=== PATIENT | male | born 1995 | race Hispanic/Latino ===

== ENCOUNTER 2016-08-31 11:20 | Emergency (ER) | payer BC ==
[2016-08-31 11:26] VITALS: BP 114/59; PULSE 79; RESP 20; TEMP 98.6; O2SAT 98
--- NOTE | 2016-08-31 11:53 | ED PDOC ---
Lower Extremity Pain/Injury Time Seen by Provider: 08/31/16 11:51 Chief Complaint (Nursing): Lower Extremity Problem/Injury Chief Complaint (Provider): right knee injury History Per: Patient (21 y/o male here for evaluation of right knee injury that occurred last night during rugby game. Patient notes twisting of knee when planted on floor. Notes moderate pain with ambulation. Denies any prior injury to knee.) Past Medical History Reviewed: Historical Data, Nursing Documentation, Vital Signs Vital Signs: Last Vital Signs Temp 98.6 F 08/31/16 11:31 Pulse 79 08/31/16 11:31 Resp 20 08/31/16 11:31 BP 114/59 L 08/31/16 11:31 Pulse Ox 98 08/31/16 11:31 - Family History Family History: States: No Known Family Hx - Home Medications Home Medications: Ambulatory Orders Medication Instructions Recorded Naproxen [Naprosyn Tab] 375 mg PO Q8 PRN #21 tab 08/31/16 - Allergies Allergies/Adverse Reactions: Allergies Allergy/AdvReac Type Severity Reaction Status Date / Time No Known Allergies Allergy Verified 08/31/16 11:31 Review of Systems ROS Statement: Except As Marked, All Systems Reviewed And Found Negative Musculoskeletal: Positive for: Other (knee pain) Physical Exam - Reviewed Nursing Documentation Reviewed: Yes Vital Signs Reviewed: Yes - Physical Exam Appears: Positive for: Well, Non-toxic, No Acute Distress Head Exam: Positive for: ATRAUMATIC, NORMAL INSPECTION, NORMOCEPHALIC Skin: Positive for: Normal Color, Warm, DRY Eye Exam: Positive for: EOMI, Normal appearance, PERRL ENT: Positive for: Normal ENT Inspection Neck: Positive for: Normal, Painless ROM Cardiovascular/Chest: Positive for: Regular Rate, Rhythm Respiratory: Positive for: CNT, Normal Breath Sounds Gastrointestinal/Abdominal: Positive for: Normal Exam, Bowel Sounds, Soft Back: Positive for: Normal Inspection Extremity: Positive for: Normal ROM, Tenderness (tender medial aspect of right knee. Minimal effusion noted. Able to flex and extend without difficulty.) Neurologic/Psych: Positive for: Alert, Oriented - ECG O2 Sat by Pulse Oximetry: 98 - Progress ED Course And Treament: knee xry: neg for fx placed in knee immobilizer and crutches Disposition - Clinical Impression Clinical Impression: Knee injury - Patient ED Disposition Is Patient to be Admitted: No - Disposition Referrals: Henrique Newberry MD [Staff Provider] - Disposition: Routine/Home Disposition Time: 12:07 Condition: FAIR Prescriptions: Naproxen [Naprosyn Tab] 375 mg PO Q8 PRN #21 tab PRN Reason: Pain, Moderate (4-7) Instructions: Knee Sprain (ED)
--- NOTE | 2016-08-31 13:35 | RAD ---
PROCEDURE: Right Knee Radiographs. HISTORY: right knee injury COMPARISON: None. FINDINGS: BONES: Normal. No fracture. JOINTS: Normal. No osteoarthritis. JOINT EFFUSION: None. OTHER FINDINGS: None. IMPRESSION: No acute findings related to/accounting for the clinical presentation.
== END 2016-08-31 12:54 | disposition home or self-care (01) ==
LOC: H.ER 11:20
DX: S89.91XA Unspecified injury of right lower leg, initial encounter (principal); X50.9XXA Other and unspecified overexertion or strenuous movements or postures, initial encounter; Y92.89 Other specified places as the place of occurrence of the external cause